=== PATIENT | male | born 1950 | race Caucasian/White ===

== ENCOUNTER 2019-02-28 14:26 | Inpatient (IN) | payer MEDICARE, OTHER ==
[~2019-02-28] VITALS: Ht 180.3 cm; Wt 82.8 kg
[~2019-02-28 14:26] MED LIST: ASPI325T17 PO; HYDR25TA6 PO; LEVO750T26 PO; LOSA100T14 PO; Phenazopyridine Hcl PO
--- NOTE | 2019-02-28 14:53 | NUR ---
PATIENT BROUGHT BACK FROM TRIAGE WITH CHIEF COMPLAINT OF "SORE/SWOLLEN NECK GLANDS". DENIES SOB, CP, HOWEVER HAD SOME EMESIS OF YELLOW BILE LAST NIGHT. THE PATIENT STATES THE PAIN HAS BEEN WORSENING FOR THE LAST 3 DAYS. THE PATIENT IS ALERT, ORIENTED, WARM AND DRY.
[2019-02-28] MEDS ORDERED: SODIUM CHLORIDE 0.9% 1,000 ML IV ONE (14:57)
[2019-02-28] MEDS ORDERED: SODIUM CHLORIDE 0.9% 1,000ML IVBOLUS ONE (15:00)
[2019-02-28] MEDS ORDERED: SODIUM CHLORIDE FLUSH 10ML SYR IVF ONE (15:00)
[2019-02-28 15:17] LABS: MEAN CORPUSCULAR HEMOGLOBIN 33.6 pg (27.5-34.5); MEAN CORPUSCULAR HGB CONC 33.9 g/dL (33.2-36.2); MEAN CORPUSCULAR VOLUME 99.2 fL (81-97); MEAN PLATELET VOLUME 8.4 fL (7.4-10.4); PLATELET COUNT 173 x10^3/uL (130-400); RED BLOOD COUNT 4.59 x10^6/uL (4.38-5.82)
[2019-02-28 15:28] LABS: ALBUMIN 3.8 g/dL (3.4-5.0); ANION GAP 9 mmol/L (5-15); CALCIUM 9.7 mg/dL (8.5-10.1); CHLORIDE 108 mmol/L (98-107); CREATININE 1.53 mg/dL (0.7-1.3)
--- NOTE | 2019-02-28 15:35 | NUR ---
PATIENT TO CT
[2019-02-28 15:39] LABS: MD YES
[2019-02-28 15:40] LABS: <RBC MORPHOLOGY> NORMAL; BAND#(MANUAL) 3.02 x10^3/uL; BANDS%(MANUAL) 15 % (0-7); LYMPHS% (MANUAL) 3 % (22-44); MONOS% (MANUAL) 3 % (2-9); SEG#(MANUAL) 15.88 x10^3/uL (1.8-6.8); SEGS% (MANUAL) 79 % (42-75)
[2019-02-28 15:41] LABS: <PLATELET ESTIMATE> ADEQUATE; LARGE PLATELETS 1+
[2019-02-28] MEDS ORDERED: OMNIPAQUE 350 MG/ML, 100ML BOTTLE ONE (15:53)
--- NOTE | 2019-02-28 16:28 | NUR ---
FEDERICO FRANKLIN AT BEDSIDE FOR UPDATE.
[2019-02-28] MEDS ORDERED: AMPICILLIN/SULBACTAM 3 GM in SODIUM CHLORIDE 0.9% 100 ML IV ONE (16:30)
[2019-02-28] MEDS ORDERED: SODIUM CHLORIDE FLUSH 10ML SYR IVF PRN (17:00)
--- NOTE | 2019-02-28 17:25 | NUR ---
REPORT CALLED TO VIKTORIYA ECHOLS, PT TRANSPORTED TO 365. [facility] INFUSING
[2019-02-28] MEDS ORDERED: ACETAMINOPHEN 325 MG TABLET PO PRN (17:30)
[2019-02-28] MEDS ORDERED: POTASSIUM CHLORIDE 20 MEQ in LACTATED RINGERS 1,000 ML IV ONE (17:30)
[2019-02-28] MEDS ORDERED: POLYETHYLENE GLYCOL 17 GM PACKET PO PRN (17:30)
[2019-02-28] MEDS ORDERED: ONDANSETRON 2MG/ML, 2ML IVPush PRN (17:30)
[2019-02-28] MEDS ORDERED: KETOROLAC 30 MG/1 ML IV PRN (17:30)
[2019-02-28] MEDS ORDERED: ONDANSETRON ODT 4 MG PO PRN (17:30)
[2019-02-28] MEDS ORDERED: TRAZODONE 50MG TABLET PO PRN (17:30)
[2019-02-28] MEDS ORDERED: hydrALAzine 20 MG/ML, 1ML IVPush PRN (17:30)
[2019-02-28] MEDS: methylPREDNISolone SOD SUCC 125 MG/2 ML IVPush SCH (18:07)
[2019-02-28] MEDS: AMPICILLIN/SULBACTAM 3 GM in SODIUM CHLORIDE 0.9% 100 ML IV SCH (18:15)
[2019-02-28 19:10] VITALS: BP 113/64
[2019-02-28 20:13] VITALS: BP 129/72
[2019-02-28] MEDS: LOSARTAN 50MG TABLET PO SCH (20:13)
[2019-03-01] MEDS: AMPICILLIN/SULBACTAM 3 GM in SODIUM CHLORIDE 0.9% 100 ML IV SCH ×2 (02:25→03:53)
[2019-03-01] MEDS: methylPREDNISolone SOD SUCC 125 MG/2 ML IVPush SCH ×4 (02:25→17:32)
[2019-03-01 03:35] VITALS: BP 116/68
[2019-03-01] MEDS ORDERED: PHARMACY MAY ADJ FOR RENAL FX MC PRN (05:30)
[2019-03-01] MEDS: PIPERACILLIN/TAZO/PMX 3.375GM 50 ML IV SCH ×4 (06:08→23:01)
[2019-03-01 06:19] LABS: MEAN CORPUSCULAR HEMOGLOBIN 33.3 pg (27.5-34.5); MEAN CORPUSCULAR HGB CONC 33.9 g/dL (33.2-36.2); MEAN CORPUSCULAR VOLUME 98.3 fL (81-97); MEAN PLATELET VOLUME 8.5 fL (7.4-10.4); PLATELET COUNT 162 x10^3/uL (130-400); RED BLOOD COUNT 3.92 x10^6/uL (4.38-5.82); RED CELL DISTRIBUTION WIDTH 13.9 % (9.4-14.8)
[2019-03-01 06:31] LABS: ANION GAP 7 mmol/L (5-15); CALCIUM 8.9 mg/dL (8.5-10.1); CHLORIDE 112 mmol/L (98-107)
[2019-03-01 06:35] LABS: MD YES
[2019-03-01 06:37] LABS: BAND#(MANUAL) 0.92 x10^3/uL; BANDS%(MANUAL) 5 % (0-7); LYMPH#(MANUAL) 1.46 x10^3/uL (1-3.4); LYMPHS% (MANUAL) 8 % (22-44); MONOS#(MANUAL) 0.55 x10^3/uL (0.3-2.7); MONOS% (MANUAL) 3 % (2-9); SEG#(MANUAL) 15.37 x10^3/uL (1.8-6.8); SEGS% (MANUAL) 84 % (42-75)
[2019-03-01 06:38] LABS: <PLATELET ESTIMATE> ADEQUATE; <PLT MORPHOLOGY> NORMAL PLT MORPH
[2019-03-01 06:40] LABS: <RBC MORPHOLOGY> NORMAL
[2019-03-01 08:44] VITALS: BP 112/65
[2019-03-01] MEDS: ASPIRIN 325 MG TABLET PO SCH (09:02)
[2019-03-01 13:15] VITALS: BP 109/63
[2019-03-01 19:14] VITALS: BP 123/67
[2019-03-01] MEDS: LOSARTAN 50MG TABLET PO SCH (21:01)
[2019-03-02] MEDS ORDERED: CALCIUM CARBONATE 500 MG TAB.CHEW PO PRN
[2019-03-02] MEDS: methylPREDNISolone SOD SUCC 125 MG/2 ML IVPush SCH ×2 (01:58→08:10)
[2019-03-02 03:44] VITALS: BP 143/70
[2019-03-02] MEDS: PIPERACILLIN/TAZO/PMX 3.375GM 50 ML IV SCH ×2 (05:11→10:45)
[2019-03-02 05:19] LABS: MEAN CORPUSCULAR HEMOGLOBIN 33.1 pg (27.5-34.5); MEAN CORPUSCULAR HGB CONC 33.7 g/dL (33.2-36.2); MEAN CORPUSCULAR VOLUME 98.3 fL (81-97); PLATELET COUNT 152 x10^3/uL (130-400); RED BLOOD COUNT 3.72 x10^6/uL (4.38-5.82); RED CELL DISTRIBUTION WIDTH 14.2 % (9.4-14.8)
[2019-03-02 05:32] LABS: CHLORIDE 112 mmol/L (98-107)
[2019-03-02 05:41] LABS: ALBUMIN 2.6 g/dL (3.4-5.0); ANION GAP 8 mmol/L (5-15); CREATININE 1.12 mg/dL (0.7-1.3)
[2019-03-02 06:10] LABS: MD YES
[2019-03-02 06:13] LABS: BAND#(MANUAL) 1.28 x10^3/uL; BANDS%(MANUAL) 7 % (0-7); LYMPH#(MANUAL) 0.73 x10^3/uL (1-3.4); LYMPHS% (MANUAL) 4 % (22-44); MONOS#(MANUAL) 0.92 x10^3/uL (0.3-2.7); MONOS% (MANUAL) 5 % (2-9); SEG#(MANUAL) 15.37 x10^3/uL (1.8-6.8); SEGS% (MANUAL) 84 % (42-75)
[2019-03-02 06:14] LABS: <PLATELET ESTIMATE> ADEQUATE; <PLT MORPHOLOGY> NORMAL PLT MORPH; <RBC MORPHOLOGY> NORMAL
[2019-03-02] MEDS: ASPIRIN 325 MG TABLET PO SCH (08:10)
[2019-03-02 08:26] VITALS: BP 144/80
[2019-03-02] MEDS ORDERED: AMOX1TAB64 PO (10:46)
== END 2019-03-02 14:10 | disposition home or self-care (01) | DRG 871 ==
LOC: ED 16:38 → EDIP 16:39 → OBSVTOIN 16:39 → ED 16:39 → INTOOBSV 16:39 → 3N 17:29 → DCLOUNGE 03-02 14:00
PROVIDERS: ADMIT Family Medicine; ATTEND Family Medicine
DX: A41.9 Sepsis, unspecified organism (principal); N17.0 Acute kidney failure with tubular necrosis; I10 Essential (primary) hypertension; I25.2 Old myocardial infarction; R13.10 Dysphagia, unspecified; Z86.73 Personal history of transient ischemic attack (TIA), and cerebral infarction without residual deficits; J06.0 Acute laryngopharyngitis
CPT/HCPCS: 36415; 70491; 80048; 80069; 82040; 83605; 83735; 85025; 87040; 87077; 96361; 96374; G0378; J0295; J1885; J2543; J3480; Q9967; J2930; J7030; J7120